=== PATIENT | male | born 2000 | race African-American/Black ===

== ENCOUNTER 2020-06-19 13:52 | Emergency (ER) | payer MEDICAID ==
[~2020-06-19] VITALS: Ht 180.3 cm; Wt 68.0 kg
[2020-06-19 13:57] VITALS: BP 129/68
== END 2020-06-19 15:10 | disposition left against medical advice (07) ==
LOC: ER 13:52
DX: F41.9 Anxiety disorder, unspecified (principal); Z53.21 Procedure and treatment not carried out due to patient leaving prior to being seen by health care provider

== ENCOUNTER 2020-07-14 17:32 | Emergency (ER) | payer MEDICAID ==
[~2020-07-14] VITALS: Ht 180.3 cm; Wt 64.0 kg
[2020-07-14 17:34] VITALS: BP 134/72
== END 2020-07-14 17:57 | disposition left against medical advice (07) ==
LOC: ER 17:32
DX: S61.011A Laceration without foreign body of right thumb without damage to nail, initial encounter (principal); Z53.21 Procedure and treatment not carried out due to patient leaving prior to being seen by health care provider; W22.09XA Striking against other stationary object, initial encounter; Y93.9 Activity, unspecified; Y92.9 Unspecified place or not applicable; Y99.8 Other external cause status

== ENCOUNTER 2020-07-19 09:00 | Emergency (ER) | payer MEDICAID ==
[~2020-07-19] VITALS: Ht 182.9 cm; Wt 66.0 kg
[2020-07-19] MEDS ORDERED: FOLIC ACID 1 MG, THIAMINE HCL 100 MG, MVI, ADULT NO.1 10 ML in DEXTROSE 5% WATER 1,000 ML IV ONE ×4 (09:15)
[2020-07-19 09:33] LABS: BASOPHILS % 0.4 % (0.0-2.0); EOSINOPHILS % 0.3 % (0.0-5.0); HEMATOCRIT. 40.5 % (42.0-52.0); HEMOGLOBIN. 13.3 g/dL (14.0-18.0); LYMPHOCYTES % 15.8 % (20.0-50.0); MEAN CORPUSCULAR HEMOGLOBIN 26.8 pg (28.0-32.0); MEAN CORPUSCULAR VOLUME 81.7 fL (80.0-94.0); MEAN PLATELET VOLUME 7.9 fl (7.4-10.4); MONOCYTES % 7.6 % (2.0-8.0); NEUTROPHILS % 75.9 % (40.0-76.0); PLATELET 213 x1000/uL (130-400); RED BLOOD CELL COUNT 4.96 mill/uL (4.7-6.1); RED CELL DISTRIBUTION WIDTH 14.1 % (11.6-14.6)
[2020-07-19 09:39] LABS: CHLORIDE 105 mEq/L (98-107)
[2020-07-19 09:43] LABS: ETHANOL BLOOD < 10 mg/dL
[2020-07-19] MEDS ORDERED: TETANUS, DIPHTHERIA, PERTUSSIS VAC/PF 0.5ML (>7YR OLD) IM ONE (11:00)
[2020-07-19] MEDS ORDERED: CEFTRIAXONE 1 G PREMIX 50 ML IV ONE (11:00)
[2020-07-19 12:08] VITALS: BP 150/84
[2020-07-19 12:27] LABS: CLARITY URINE CLOUDY (CLEAR); COLOR URINE YELLOW (YELLOW); KETONES URINE 2+ (NEGATIVE); LEUKOCYTE ESTERASE URINE NEGATIVE (NEGATIVE); NITRITE URINE NEGATIVE (NEGATIVE); OCCULT BLOOD URINE NEGATIVE (NEGATIVE); PH URINE 5.5 (4.5-8.0); PROTEIN URINE TRACE (NEGATIVE); SPECIFIC GRAVITY URINE 1.013 (1.005-1.030); UROBILINOGEN URINE 0.2 E.U./dL (0.2-1.0)
[2020-07-19 13:02] LABS: *AMPHETAMINES SCREEN URINE PRESUMTIVE POSITIVE (NEGATIVE); *BARBITURATES SCREEN URINE NEGATIVE (NEGATIVE); *BENZODIAZEPINES SCREEN URINE NEGATIVE (NEGATIVE); *COCAINE SCREEN URINE NEGATIVE (NEGATIVE); METHADONE URINE SCREEN NEGATIVE (NEGATIVE)
[2020-07-19 13:03] LABS: CANNABINOID URINE SCREEN PRESUMTIVE POSITIVE (NEGATIVE); PHENCYCLIDINE URINE SCREEN NEGATIVE (NEGATIVE)
[2020-07-19 13:18] LABS: OPIATES URINE SCREEN NEGATIVE (NEGATIVE)
== END 2020-07-19 14:52 | disposition left against medical advice (07) ==
LOC: ER 09:07
DX: S61.219D Laceration without foreign body of unspecified finger without damage to nail, subsequent encounter (principal); E11.649 Type 2 diabetes mellitus with hypoglycemia without coma; Z98.890 Other specified postprocedural states; F15.10 Other stimulant abuse, uncomplicated; X58.XXXD Exposure to other specified factors, subsequent encounter
CPT/HCPCS: 36415; 73130; 80053; 80305; 80307; 80320; 80329; 81003; 82962; 85025; 90471; 90715; 93005; 96365; 96366; 96367; 99285; J0696; J3411; J3490; J7070; G0480

== ENCOUNTER 2020-08-04 10:06 | Emergency (ER) | payer MEDICAID ==
[~2020-08-04] VITALS: Ht 177.8 cm; Wt 66.0 kg
[2020-08-04] MEDS ORDERED: SODIUM CHLORIDE 0.9% 1,000 ML IV ONE (10:20)
[2020-08-04 10:46] LABS: BASOPHILS % 0.7 % (0.0-2.0); EOSINOPHILS % 1.4 % (0.0-5.0); HEMATOCRIT. 42.2 % (42.0-52.0); HEMOGLOBIN. 13.8 g/dL (14.0-18.0); LYMPHOCYTES % 33.1 % (20.0-50.0); MEAN CORPUSCULAR HEMOGLOBIN 27.1 pg (28.0-32.0); MEAN CORPUSCULAR VOLUME 82.6 fL (80.0-94.0); MEAN PLATELET VOLUME 7.8 fl (7.4-10.4); MONOCYTES % 4.7 % (2.0-8.0); NEUTROPHILS % 60.1 % (40.0-76.0); PLATELET 237 x1000/uL (130-400); RED BLOOD CELL COUNT 5.11 mill/uL (4.7-6.1); RED CELL DISTRIBUTION WIDTH 14.6 % (11.6-14.6)
[2020-08-04 10:52] LABS: CHLORIDE 107 mEq/L (98-107)
[2020-08-04 10:57] LABS: ETHANOL BLOOD 125 mg/dL
[2020-08-04 12:09] LABS: *AMPHETAMINES SCREEN URINE NEGATIVE (NEGATIVE)
[2020-08-04 12:10] LABS: *BARBITURATES SCREEN URINE NEGATIVE (NEGATIVE); *BENZODIAZEPINES SCREEN URINE NEGATIVE (NEGATIVE); *COCAINE SCREEN URINE NEGATIVE (NEGATIVE); METHADONE URINE SCREEN NEGATIVE (NEGATIVE); OPIATES URINE SCREEN NEGATIVE (NEGATIVE)
[2020-08-04 12:12] LABS: CANNABINOID URINE SCREEN PRESUMTIVE POSITIVE (NEGATIVE); PHENCYCLIDINE URINE SCREEN NEGATIVE (NEGATIVE)
[2020-08-04 12:52] VITALS: BP 120/71
== END 2020-08-04 12:57 | disposition home or self-care (01) ==
LOC: ER 10:06
DX: F12.10 Cannabis abuse, uncomplicated (principal); F19.10 Other psychoactive substance abuse, uncomplicated; R41.82 Altered mental status, unspecified; F17.200 Nicotine dependence, unspecified, uncomplicated; E11.9 Type 2 diabetes mellitus without complications; I49.9 Cardiac arrhythmia, unspecified
CPT/HCPCS: 36415; 80053; 80305; 80320; 85025; 93005; 96360; 99284; J7030; G0480

== ENCOUNTER 2020-09-01 15:41 | Emergency (ER) | payer MEDICAID ==
[~2020-09-01] VITALS: Ht 180.3 cm; Wt 74.0 kg
[2020-09-01] MEDS ORDERED: ONDANSETRON HCL 4MG TABLET PO ONE (16:45)
[2020-09-01] MEDS ORDERED: ACETAMINOPHEN 325MG TABLET PO ONE (16:45)
[2020-09-01 17:07] LABS: BASOPHILS % 0.2 % (0.0-2.0); HEMATOCRIT. 46.1 % (42.0-52.0); MEAN CORPUSCULAR HEMOGLOBIN 27.1 pg (28.0-32.0); MEAN CORPUSCULAR VOLUME 83.6 fL (80.0-94.0); MONOCYTES % 2.2 % (2.0-8.0); NEUTROPHILS % 89.6 % (40.0-76.0); PLATELET 263 x1000/uL (130-400); RED BLOOD CELL COUNT 5.52 mill/uL (4.7-6.1); RED CELL DISTRIBUTION WIDTH 14.9 % (11.6-14.6)
[2020-09-01 17:13] LABS: CHLORIDE 104 mEq/L (98-107)
[2020-09-01 17:17] LABS: ETHANOL BLOOD < 10 mg/dL
[2020-09-01 17:50] VITALS: BP 142/52
[2020-09-01 18:03] LABS: CLARITY URINE CLEAR (CLEAR); COLOR URINE YELLOW (YELLOW); KETONES URINE 2+ (NEGATIVE); LEUKOCYTE ESTERASE URINE NEGATIVE (NEGATIVE); NITRITE URINE NEGATIVE (NEGATIVE); OCCULT BLOOD URINE NEGATIVE (NEGATIVE); PROTEIN URINE 1+ (NEGATIVE); SPECIFIC GRAVITY URINE 1.029 (1.005-1.030); UROBILINOGEN URINE 0.2 E.U./dL (0.2-1.0)
[2020-09-01 18:25] LABS: *AMPHETAMINES SCREEN URINE PRESUMTIVE POSITIVE (NEGATIVE); *BARBITURATES SCREEN URINE NEGATIVE (NEGATIVE); *BENZODIAZEPINES SCREEN URINE NEGATIVE (NEGATIVE); *COCAINE SCREEN URINE NEGATIVE (NEGATIVE); METHADONE URINE SCREEN NEGATIVE (NEGATIVE)
[2020-09-01 18:26] LABS: CANNABINOID URINE SCREEN PRESUMTIVE POSITIVE (NEGATIVE); OPIATES URINE SCREEN NEGATIVE (NEGATIVE); PHENCYCLIDINE URINE SCREEN NEGATIVE (NEGATIVE)
== END 2020-09-01 18:08 | disposition home or self-care (01) ==
LOC: ER 15:41
DX: F15.10 Other stimulant abuse, uncomplicated (principal); R53.1 Weakness; E11.9 Type 2 diabetes mellitus without complications
CPT/HCPCS: 36415; 71045; 80053; 80305; 80320; 81003; 82010; 85025; 93005; 99285; Q0162; G0480

== ENCOUNTER 2025-09-14 03:22 | Emergency (ER) | payer MEDICARE, MEDICAID ==
[~2025-09-14] VITALS: Ht 180.3 cm; Wt 76.3 kg
[2025-09-14 03:30] VITALS: O2SAT 100
[2025-09-14 05:50] LABS: BASOPHILS % 1.0 % (0.0-2.0); EOSINOPHILS % 1.5 % (0.0-5.0); HEMATOCRIT. 38.8 % (42.0-52.0); HEMOGLOBIN. 12.5 g/dL (14.0-18.0); LYMPHOCYTES % 49.2 % (20.0-50.0); MEAN PLATELET VOLUME 7.7 fl (7.4-10.4); MONOCYTES % 5.0 % (2.0-8.0); NEUTROPHILS % 43.3 % (40.0-76.0); PLATELET 241 x1000/uL (130-400); RED BLOOD CELL COUNT 4.59 mill/uL (4.7-6.1); RED CELL DISTRIBUTION WIDTH 13.5 % (11.6-14.6)
[2025-09-14 06:04] LABS: CREATININE 1.0 mg/dL (0.6-1.3); UREA NITROGEN BLOOD 8 mg/dL (9-23)
[2025-09-14] MEDS: ONDANSETRON 4MG ODT PO ONE (06:49)
[2025-09-14 07:01] LABS: ASPARTATE AMINOTRANSFERASE 14 IU/L (<34); BILIRUBIN DIRECT 0.1 mg/dL (<=3.0); BILIRUBIN TOTAL 0.3 mg/dL (0.1-1.0)
[2025-09-14 08:17] LABS: PROTEIN TOTAL 6.2 g/dL (6.0-8.3)
[2025-09-14] MEDS ORDERED: HYDROXYZINE 25MG TABLET PO PRN (10:15)
[2025-09-14 11:42] LABS: *AMPHETAMINES SCREEN URINE NEGATIVE (NEGATIVE)
[2025-09-14 11:43] LABS: *BARBITURATES SCREEN URINE NEGATIVE (NEGATIVE); *BENZODIAZEPINES SCREEN URINE NEGATIVE (NEGATIVE); *COCAINE SCREEN URINE NEGATIVE (NEGATIVE); CANNABINOID URINE SCREEN PRESUMPTIVE POSITIVE (NEGATIVE); ECSTASY MDMA SCREEN URINE NEGATIVE (NEGATIVE); METHADONE URINE SCREEN NEGATIVE (NEGATIVE); OPIATES URINE SCREEN NEGATIVE (NEGATIVE); PHENCYCLIDINE URINE SCREEN NEGATIVE (NEGATIVE)
[2025-09-14 15:28] VITALS: BP 105/63; PULSE 87; RESP 18; TEMP 36.7; O2SAT 100
[2025-09-15] MEDS ORDERED: ARIPIPRAZOLE 5MG TABLET PO SCH (09:00)
[2025-09-15 15:23] LABS: CLARITY URINE TURBID (CLEAR); COLOR URINE DARK YELLOW (YELLOW); PH URINE 7.0 (4.5-8.0); SPECIFIC GRAVITY URINE 1.041 (1.005-1.030)
[2025-09-15 15:24] LABS: GLUCOSE URINE NEGATIVE (NEGATIVE); KETONES URINE TRACE (NEGATIVE); LEUKOCYTE ESTERASE URINE TRACE (NEGATIVE); NITRITE URINE NEGATIVE (NEGATIVE); OCCULT BLOOD URINE NEGATIVE (NEGATIVE); PROTEIN URINE 1+ (NEGATIVE); UROBILINOGEN URINE 1.0 E.U./dL (0.2-1.0)
[2025-09-15 16:28] LABS: SQUAMOUS EPITHELIAL CELL URINE FEW /lpf (RARE/1+)
[2025-09-15 16:29] LABS: AMORPHOUS SEDIMENT URINE 2+ /lpf; BACTERIA URINE 3+; MUCUS URINE 1+ /lpf (NONE/TRACE); RBC URINE 0-2 /hpf (0-2); WBC URINE 0-2 /hpf (0-2)
== END 2025-09-14 15:41 ==
LOC: ER 03:22
DX: R45.851 Suicidal ideations (principal); R11.2 Nausea with vomiting, unspecified; E11.9 Type 2 diabetes mellitus without complications; F31.9 Bipolar disorder, unspecified; Z59.00 Homelessness unspecified; Z79.899 Other long term (current) drug therapy; Z20.822 Contact with and (suspected) exposure to COVID-19
CPT/HCPCS: 80076; 80305; 80048; 81003; 80307; 80329; 80320; 83690; 85025; 36415; 99291; 87426; Q0162; G0480